=== PATIENT | male | born 1965 | race Caucasian/White ===

== ENCOUNTER 2016-07-24 06:25 | Day surgery (SDC) | payer BC ==
[2016-07-23 10:02] LABS: HEMATOCRIT 42.2 % (40.0-51.0); HEMOGLOBIN 13.9 g/dL (13.6-17.8)
[2016-07-23 10:20] LABS: A/G RATIO 1.2 (0.7-1.9); ALBUMIN 3.9 G/DL (3.5-5.0); ALKALINE PHOSPHATASE 183 U/L (45-117); BUN (BLOOD UREA NITROGEN) 16 MG/DL (6-23); CALCIUM, SERUM 9.2 MG/DL (8.5-10.4); CHLORIDE, SERUM 105 MMOL/L (96-112); CO2 (CARBON DIOXIDE) 31 MMOL/L (24-34); CREATININE 0.98 MG/DL (0.70-1.30); GFR AFRICAN AMERICAN 102 ML/MIN (>=60); GFR NON AFRICAN AMERICAN 88 ML/MIN (>=60); GLOBULIN 3.3 G/DL (2.5-4.1); GLUCOSE, SERUM 74 MG/DL (60-99); POTASSIUM, SERUM 4.7 MMOL/L (3.5-5.3); SGOT(AST) 23 U/L (5-40); SGPT(ALT) 165 U/L (5-65); SODIUM, SERUM 142 MMOL/L (135-148); TOTAL BILIRUBIN 1.2 MG/DL (0-1.2); TOTAL PROTEIN 7.2 G/DL (6.0-8.5)
--- NOTE | ~2016-07-24 | OP ---
Record Of Operation [facility] [address] [place]. [address] NAME: BOBO SEYMOUR : 61 STATUS : REG [facility] PAT#: [id number] AGE: 50 ADM/REG DATE : 07/24/16 MR#: [id number] REPORT SERV DATE: 07/25/16 DICTATED BY: ASAD ROD DATE: 07/25/16 REPORT STATUS : Draft TRANSCRIBED BY: MODL DATE: 07/25/16 DATE OF PROCEDURE: 07/24/2016 PREOPERATIVE DIAGNOSIS: Chronic cholecystitis with cholelithiasis. POSTOPERATIVE DIAGNOSIS: Chronic cholecystitis with cholelithiasis. PROCEDURE: Laparoscopic cholecystectomy (two-site). DESCRIPTION OF OPERATIVE PROCEDURE: The patient was brought to operating suite, placed in supine position, underwent satisfactory general endotracheal anesthesia without incident. The skin of the abdomen was scrubbed, prepped, and draped in usual sterile fashion. 0.5% Marcaine with epinephrine was utilized as supplemental local anesthesia at all intended trocar sites. Initially, an infraumbilical incision was performed dissecting through the skin and subcutaneous tissue to the umbilical fascia, this was grasped with a Shabnam clamp and elevated, and a disposable Veress insufflation needle was inserted through the umbilical fascia into the peritoneal cavity. The intraperitoneal tip location was ascertained using the saline hanging drop method following which CO2 was insufflated for pressures of 15 mmHg throughout the case. After adequate insufflation pressure achieved, Veress needle was removed, disposable bladed/shielded 11 mm trocar inserted through the umbilical fascia into the peritoneal cavity, following which a rigid forward-viewing 10 mm laparoscope was inserted. Visualization of the intraabdominal parietes revealed no evidence of injury from initial insufflation or puncture. A cursory examination pelvis was normal. Attention was then turned to the upper abdomen, where an additional 5 mm trocar was placed to the right of falciform ligament. Then additional grasping instrument was inserted through the umbilical fascia next to the umbilical trocar. The fundus and body of the gallbladder was grasped and elevated. There were some fibrofatty periduodenal adhesions to the gallbladder wall specially in the infundibular region, these were taken down with a combination of blunt and cautery dissection, and then dissection of triangle of Calot was successful in identifying and skeletonizing the cystic duct and the cystic duct and common duct junction as well as the cystic artery. Both of these structures were isolated and controlled with multiple applications of the Weck 5 mm polymer clip system and divided. Then using spatula cautery dissection, the peritoneal attachments to the gallbladder liver were divided, gallbladder was removed from the subhepatic space. Hemostasis was assured. Next, the camera was switched to the 5 mm epigastric port. The gallbladder was grasped by its neck and withdrawn through the umbilicus. It was opened aspirated and removed and found to contain multiple small stones. Record Of Operation [address] [place]. [address] NAME: BOBO SEYMOUR : 61 STATUS : REG [facility] PAT#: [id number] AGE: 50 ADM/REG DATE : 07/24/16 MR#: [id number] REPORT SERV DATE: 07/25/16 DICTATED BY: ASAD ROD DATE: 07/25/16 REPORT STATUS : Draft TRANSCRIBED BY: FARHAD DATE: 07/25/16 CO2 was allowed to egress from the peritoneal cavity. No muscular bleeding was noted. The umbilicus was closed with [id number] suture of 0 Vicryl. Subcutaneous tissue closed with interrupted 4-0 Vicryl, and a running subcuticular stitch 4-0 Vicryl for the skin. Dermabond skin adhesive applied. The patient tolerated the procedure well and was returned to PACU in stable condition. At the termination of the procedure, sponge, needle, lap, and instrument counts were correct x3. ESTIMATED BLOOD LOSS: Less than 10-15 mL. WR/MODL Asad Rod M.D. / [id number] CC: Warren Blake M.D.
[~2016-07-24 06:25] MED LIST: *DENIES; AMB10 PO; COREG12 PO; PROZAC PO; ZOL100 PO
== END 2016-07-24 23:59 | disposition home or self-care (01) ==
LOC: MSC 06:25
PROVIDERS: Specialist
PROC: 0FT44ZZ Resection of Gallbladder, Percutaneous Endoscopic Approach (ICD-10-PCS; principal; 2016-07-24 07:45)
DX: K80.10 Calculus of gallbladder with chronic cholecystitis without obstruction (principal); I10 Essential (primary) hypertension; F41.9 Anxiety disorder, unspecified; K44.9 Diaphragmatic hernia without obstruction or gangrene; F17.290 Nicotine dependence, other tobacco product, uncomplicated; J30.2 Other seasonal allergic rhinitis; Z79.899 Other long term (current) drug therapy; Z98.890 Other specified postprocedural states
CPT/HCPCS: 80053; 85014; 85018; 88304; 93005; A9270-GY; J0461; J0690; J1885; J2250; J2405; J2710; J3010

== ENCOUNTER 2016-08-16 03:26 | Inpatient (IN) | payer BC ==
--- NOTE | ~2016-08-16 | HP ---
History And Physical [address] [place]. [address] NAME: BOBO SEYMOUR : 61 STATUS : DIS IN PAT#: [id number] AGE: 50 ADM/REG DATE : 08/16/16 MR#: [id number] REPORT SERV DATE: 08/18/16 DICTATED BY: ASAD ROD DATE: 08/18/16 REPORT STATUS : Draft TRANSCRIBED BY: MODL DATE: 08/18/16 DATE OF ADMISSION: 08/16/2016 CONTINUATION: LAB: White count 23,100, hemoglobin 14.7, hematocrit 42.3, potassium 3.8, total bilirubin 2.6, alkaline phosphatase 158, AST 44. CT imaging shows a poorly visualized appendix with marked inflammatory changes beyond the base with a loculated fluid and gas collection in immediate lower tip of the cecum measuring 5.2 cm in maximal dimension. This is all consistent with ruptured appendicitis with periappendiceal abscess. There was noted to be marked inflammation of the surrounding tissue planes. IMPRESSION: Acute ruptured appendicitis with sepsis. PLAN: I talked with the patient about the risks and benefits of anesthesia and surgery versus expectant observation. He has been given broad-spectrum IV antibiotics. I have recommended urgent laparoscopic appendectomy. He understands that the chance of an open appendectomy is higher given his overall state. WILLY/FARHAD Asad Rod M.D. / [id number] CC: Warren Blake M.D.
--- NOTE | ~2016-08-16 | OP ---
Record Of Operation [facility] [address] [place]. [address] NAME: BOBO SEYMOUR : 61 STATUS : DIS IN PAT#: [id number] AGE: 50 ADM/REG DATE : 08/16/16 MR#: [id number] REPORT SERV DATE: 08/18/16 DICTATED BY: ASAD ROD DATE: 08/18/16 REPORT STATUS : Draft TRANSCRIBED BY: MODL DATE: 08/18/16 DATE OF PROCEDURE: 08/16/2016 PREOPERATIVE DIAGNOSIS: Ruptured appendicitis. POSTOPERATIVE DIAGNOSIS: Ruptured appendicitis. PROCEDURE: Laparoscopic appendectomy. SURGEON: Asad Rod M.D. DESCRIPTION OF OPERATIVE PROCEDURE: The patient was brought to the operating suite, placed in supine position, underwent satisfactory general endotracheal anesthesia without incident. The skin of the abdomen was scrubbed, prepped, and draped in usual sterile fashion. Marcaine 0.5% with epinephrine was utilized as supplemental local anesthesia at intended trocar sites. The patient was three weeks status post two-site lap gallbladder. Two of these incisions were used. The umbilical incision was performed removing the previous Vicryl suture subcutaneously as well as in the fascia. The fascia was grasped and elevated and disposable Veress insufflation needle was inserted through the umbilical fascia into the peritoneal cavity. Intraperitoneal tip location ascertained using saline hanging drop method. CO2 was insufflated for pressures of 15 mmHg throughout the case. After adequate insufflation pressure achieved, Veress needle was removed, disposable bladed 12-mm trocar inserted through the umbilical fascia in the peritoneal cavity, following which a rigid forward-viewing 10-mm laparoscope was inserted. Visualization of the intraabdominal parietes revealed no evidence of injury from initial insufflation or puncture. Additional 10-mm trocar established in the epigastrium and then, a 5-mm trocar established in the suprapubic midline, all under direct visualization. Evaluation of the right lower quadrant/ileocolic area revealed ruptured appendix. The sigmoid colon, small bowel, and cecum were rolled up on to the pelvic sidewall isolating the ruptured appendix using blunt dissection. This area was opened and purulent material was noted as well as feculent material. This was sent for culture. Using irrigation and manipulation, I was able to free the sigmoid colon off the ruptured appendix, which was necrotic, almost to its junction with the cecum. I was able to create an avascular window at the base of the appendix with junction of the cecum across which was passed the Endo VASQUEZ 45 device. It was closed and fired transecting the appendix and its contents off the cecum. Further firing of the vascular load of the same device was successful in dividing what was left of the mesoappendix. The appendix was placed inside an Endo retrieval pouch and then copious irrigation was performed of the right lower quadrant in the pelvis and in the right upper quadrant. Record Of [address]. [address] NAME: BOBO SEYMOUR : 61 STATUS : DIS IN PAT#: [id number] AGE: 50 ADM/REG DATE : 08/16/16 MR#: [id number] REPORT SERV DATE: 08/18/16 DICTATED BY: ASAD ROD DATE: 08/18/16 REPORT STATUS : Draft TRANSCRIBED BY: FARHAD DATE: 08/18/16 Hemostasis was assured. Next, trocars were removed. The appendix was removed through the umbilicus inside its pouch. CO2 was allowed to egress from peritoneal cavity. The umbilicus was closed with fascial level with interrupted 0 Vicryl as well as the 10-mm epigastric trocar site, then subcutaneous tissue closed at all sites with interrupted 4-0 Vicryl, running subcuticular stitch of 4-0 Vicryl for the skin. Dermabond skin adhesive placed. The patient tolerated the procedure well and was returned to PACU in stable condition. At the termination of procedure, sponge, needle, lap, and instrument counts were correct x3. ESTIMATED BLOOD LOSS: 20-25 mL. WR/MODL Asad Rod M.D. / [id number] CC: Warren Blake M.D.
--- NOTE | ~2016-08-16 | HP ---
History And Physical [place] [id number] [facility] [place]. [address] NAME: BOBO SEYMOUR : 61 STATUS : DIS IN PAT#: [id number] AGE: 50 ADM/REG DATE : 08/16/16 MR#: [id number] REPORT SERV DATE: 08/18/16 DICTATED BY: ASAD ROD DATE: 08/18/16 REPORT STATUS : Draft TRANSCRIBED BY: FARHAD DATE: 08/18/16 DATE OF ADMISSION: 08/16/2016 REASON FOR ADMISSION: Ruptured appendicitis. HISTORY OF PRESENT ILLNESS: A 50-year-old white male who is approximately three weeks status post laparoscopic cholecystectomy for chronic cholecystitis with cholelithiasis. The patient did well from this surgery, had been seen in the office just about a week ago and had been recovering well, and has returned to normal function. About two or three days ago, the patient developed digestive symptoms, low-grade abdominal pain/discomfort, which he thought was poor eating habits or indigestion. Unfortunately, he had progressed to the point where he had to come to the ED late in the evening where imaging and lab work were consistent with ruptured appendicitis. PAST MEDICAL HISTORY: The patient has some anxiety, has some hypertension. ALLERGIES: NONE TO FOOD, LATEX, OR MEDICATIONS. SURGICAL HISTORY: [place] tooth extraction in 1975, and recent cholecystectomy. SOCIAL HISTORY: He is , nonsmoker. He currently drinks alcohol one to four drinks a week. MEDICATIONS: Carvedilol 12.5 mg a day, sertraline 100 mg daily, zolpidem 10 mg tablet daily. PHYSICAL EXAMINATION: GENERAL: Patient is an alert male, communicative, obviously ill appearing. HEENT: Within normal limits. There is no thyromegaly, nodularity, nodes, masses, or tenderness. CARDIOVASCULAR: No gallop. Regular rate. Normal heart sounds. No murmurs. RESPIRATORY: Breath sounds are clear bilaterally. No retractions. Normal rate. ABDOMEN: Reveals healing incisions at the umbilicus and epigastrium, which still have Dermabond skin adhesive. The patient's abdomen is firm with guarding in the right lower quadrant. LABORATORY DATA: WBC DICTATION ENDS HERE. WILLY/FARHAD Asad Rod M.D. History And Physical [address] [place] [address] NAME: BOBO SEYMOUR : 61 STATUS : DIS IN PAT#: [id number] AGE: 50 ADM/REG DATE : 08/16/16 MR#: [id number] REPORT SERV DATE: 08/18/16 DICTATED BY: ASAD ROD DATE: 08/18/16 REPORT STATUS : Draft TRANSCRIBED BY: FARHAD DATE: 08/18/16 / [id number] CC: Warren Blake M.D.
[2016-08-16 04:06] LABS: BASOPHILS 0.1 %; BASOPHILS ABSOLUTE 0.02 10/3/uL (0.0-0.16); EOSINOPHILS 0.2 %; EOSINOPHILS ABSOLUTE 0.05 10/3/uL (0.0-0.53); HEMATOCRIT 42.3 % (40.0-51.0); HEMOGLOBIN 14.7 g/dL (13.6-17.8); IMMATURE GRANULOCYTES 0.7 %; IMMATURE GRANULOCYTES ABSOLUTE 0.17 10/3/uL (0.0-0.11); LYMPHOCYTES 9.5 %; LYMPHOCYTES ABSOLUTE 2.21 10/3/uL (0.67-4.30); MEAN CORPUS HGB CONC 34.8 g/dL (32.0-36.0); MEAN CORPUSCULAR HEMOGLOB 30.2 pg (26.0-34.0); MEAN PLATELET VOLUME 10.9 fL (9.2-13.0); MONOCYTES 9.8 %; MONOCYTES ABSOLUTE 2.29 10/3/uL (0.21-1.20); NEUTROPHILS 79.7 %; NEUTROPHILS ABSOLUTE 18.57 10/3/uL (2.02-8.40); PLATELET COUNT 181 10/3/uL (150-400); RBC DISTRIBUTION WIDTH 13.3 % (12.0-16.0); RED CELL COUNT 4.86 10/6/uL (4.7-6.1)
[2016-08-16 04:08] LABS: MANUAL DIFF NO %; WHITE BLOOD CELLS 23.3 10/3/uL (4.5-10.5)
[2016-08-16 04:17] LABS: ASCORBIC ACID (UR NOT ORDER) NEG (NEG); BILIRUBIN, URINE NEGATIVE (NEG); ER URINALYSIS TAT 0 Hrs 00 Mins; KETONE, URINE NEGATIVE (NEG); LEUKOCYTE ESTERASE(NOT OR TRACE (NEG); NITRITE (URINE) NEG (NEG); WBC (NOT ORDERED) (RFLEX) 10 (0-5)
[2016-08-16 04:20] LABS: A/G RATIO 0.9 (0.7-1.9); ALBUMIN 3.9 G/DL (3.5-5.0); ALKALINE PHOSPHATASE 158 U/L (45-117); BUN (BLOOD UREA NITROGEN) 27 MG/DL (6-23); CALCIUM, SERUM 9.5 MG/DL (8.5-10.4); CHLORIDE, SERUM 96 MMOL/L (96-112); CO2 (CARBON DIOXIDE) 33 MMOL/L (24-34); CREATININE 1.66 MG/DL (0.70-1.30); GFR AFRICAN AMERICAN 54 ML/MIN (>=60); GFR NON AFRICAN AMERICAN 47 ML/MIN (>=60); GLOBULIN 4.5 G/DL (2.5-4.1); GLUCOSE, SERUM 122 MG/DL (60-99); POTASSIUM, SERUM 3.8 MMOL/L (3.5-5.3); SGOT(AST) 15 U/L (5-40); SGPT(ALT) 39 U/L (5-65); SODIUM, SERUM 135 MMOL/L (135-148); TOTAL BILIRUBIN 2.6 MG/DL (0-1.2); TOTAL PROTEIN 8.4 G/DL (6.0-8.5)
[2016-08-17 06:22] LABS: BASOPHILS 0.1 %; BASOPHILS ABSOLUTE 0.01 10/3/uL (0.0-0.16); EOSINOPHILS 0 %; HEMOGLOBIN 12.3 g/dL (13.6-17.8); IMMATURE GRANULOCYTES 0.3 %; IMMATURE GRANULOCYTES ABSOLUTE 0.04 10/3/uL (0.0-0.11); LYMPHOCYTES 5.9 %; LYMPHOCYTES ABSOLUTE 0.68 10/3/uL (0.67-4.30); MEAN CORPUS HGB CONC 34.4 g/dL (32.0-36.0); MEAN CORPUSCULAR HEMOGLOB 29.8 pg (26.0-34.0); MEAN CORPUSCULAR VOLUME 86.7 fL (80-100); MEAN PLATELET VOLUME 11.6 fL (9.2-13.0); MONOCYTES 7.4 %; MONOCYTES ABSOLUTE 0.85 10/3/uL (0.21-1.20); NEUTROPHILS 86.3 %; NEUTROPHILS ABSOLUTE 9.91 10/3/uL (2.02-8.40); PLATELET COUNT 152 10/3/uL (150-400); RBC DISTRIBUTION WIDTH 13.8 % (12.0-16.0); RED CELL COUNT 4.13 10/6/uL (4.7-6.1)
[2016-08-17 06:24] LABS: HEMATOCRIT 35.8 % (40.0-51.0); MANUAL DIFF NO %; WHITE BLOOD CELLS 11.5 10/3/uL (4.5-10.5)
[2016-08-17 06:35] LABS: CALCIUM, SERUM 8.7 MG/DL (8.5-10.4); CHLORIDE, SERUM 103 MMOL/L (96-112); CO2 (CARBON DIOXIDE) 29 MMOL/L (24-34); POTASSIUM, SERUM 4.4 MMOL/L (3.5-5.3); SGOT(AST) 44 U/L (5-40); SGPT(ALT) 93 U/L (5-65); SODIUM, SERUM 138 MMOL/L (135-148); TOTAL BILIRUBIN 2.6 MG/DL (0-1.2)
[2016-08-17 06:36] LABS: A/G RATIO 0.6 (0.7-1.9); ALBUMIN 2.4 G/DL (3.5-5.0); ALKALINE PHOSPHATASE 182 U/L (45-117); BUN (BLOOD UREA NITROGEN) 19 MG/DL (6-23); CREATININE 0.91 MG/DL (0.70-1.30); GFR AFRICAN AMERICAN 112 ML/MIN (>=60); GFR NON AFRICAN AMERICAN 97 ML/MIN (>=60); GLUCOSE, SERUM 152 MG/DL (60-99); TOTAL PROTEIN 6.4 G/DL (6.0-8.5)
[2016-08-18 05:18] LABS: BASOPHILS 0 %; EOSINOPHILS 0.4 %; EOSINOPHILS ABSOLUTE 0.05 10/3/uL (0.0-0.53); HEMATOCRIT 35.3 % (40.0-51.0); HEMOGLOBIN 11.5 g/dL (13.6-17.8); IMMATURE GRANULOCYTES 0.4 %; IMMATURE GRANULOCYTES ABSOLUTE 0.05 10/3/uL (0.0-0.11); LYMPHOCYTES 11.5 %; LYMPHOCYTES ABSOLUTE 1.38 10/3/uL (0.67-4.30); MEAN CORPUSCULAR HEMOGLOB 28.6 pg (26.0-34.0); MEAN CORPUSCULAR VOLUME 87.8 fL (80-100); MEAN PLATELET VOLUME 11.2 fL (9.2-13.0); MONOCYTES 6.5 %; MONOCYTES ABSOLUTE 0.78 10/3/uL (0.21-1.20); NEUTROPHILS 81.2 %; NEUTROPHILS ABSOLUTE 9.79 10/3/uL (2.02-8.40); PLATELET COUNT 186 10/3/uL (150-400); RBC DISTRIBUTION WIDTH 13.9 % (12.0-16.0); RED CELL COUNT 4.02 10/6/uL (4.7-6.1); WHITE BLOOD CELLS 12.1 10/3/uL (4.5-10.5)
[2016-08-18 05:19] LABS: MANUAL DIFF NO %; MEAN CORPUS HGB CONC 32.6 g/dL (32.0-36.0)
[2016-08-18 05:44] LABS: A/G RATIO 0.6 (0.7-1.9); ALBUMIN 2.3 G/DL (3.5-5.0); BUN (BLOOD UREA NITROGEN) 17 MG/DL (6-23); CALCIUM, SERUM 8.7 MG/DL (8.5-10.4); CHLORIDE, SERUM 108 MMOL/L (96-112); CO2 (CARBON DIOXIDE) 29 MMOL/L (24-34); CREATININE 0.71 MG/DL (0.70-1.30); GFR AFRICAN AMERICAN 125 ML/MIN (>=60); GFR NON AFRICAN AMERICAN 108 ML/MIN (>=60); GLOBULIN 3.9 G/DL (2.5-4.1); POTASSIUM, SERUM 3.8 MMOL/L (3.5-5.3); SGOT(AST) 25 U/L (5-40); SGPT(ALT) 62 U/L (5-65); SODIUM, SERUM 136 MMOL/L (135-148); TOTAL PROTEIN 6.2 G/DL (6.0-8.5)
[2016-08-18 05:45] LABS: ALKALINE PHOSPHATASE 151 U/L (45-117); GLUCOSE, SERUM 105 MG/DL (60-99); TOTAL BILIRUBIN 0.6 MG/DL (0-1.2)
[2016-08-18] MEDS ORDERED: NORCO1 TA1 PO (10:35)
[2016-08-18] MEDS ORDERED: LEVAQUIN750 MG PO (10:36)
[2016-08-18] MEDS ORDERED: FLAG500TAB PO (10:39)
== END 2016-08-18 11:11 | disposition home or self-care (01) | DRG 340 ==
LOC: ER 03:26 → 4EA 04:10
PROVIDERS: Specialist
PROC: 0DTJ4ZZ Resection of Appendix, Percutaneous Endoscopic Approach (ICD-10-PCS; principal; 2016-08-16 10:45)
DX: K35.2 Acute appendicitis with generalized peritonitis (principal)
CPT/HCPCS: 74176; 80053; 81001; 83690; 85025; 87015; 87070; 87075; 87077; 87102; 87116; 87186; 87205; 88304; 99285; A9270-GY; J1885; J2250; J2370; J2405; J2543; J2710; J3010